=== PATIENT | female | born 1980 | race Caucasian/White ===

== ENCOUNTER 2024-03-13 07:14 | Outpatient (CLI) | payer OTHER, SELFPAY ==
--- NOTE | ~2024-03-13 | XR_ITS ---
XR cervical spine 4-5V 03/13/2024 07:47 Indication: Neck pain Procedure: 5 views cervical spine including flexion/extension views Comparison: No prior studies for comparison. Findings: Normal cervical alignment. Vertebral body heights are maintained. Odontoid process is marcus l. No prevertebral soft tissue abnormality. No alteration of alignment with flexion/extension. No acu te fracture or traumatic malalignment. Impression: 1: No significant abnormality of the cervical spine. Reviewed, dictated and finalized at location A. Impression: 1: No significant abnormality of the cervical spine.
== END 2024-03-13 07:15 | disposition home or self-care (01) ==
PROVIDERS: PCP Family Medicine; Visit Provider Family Medicine
DX: M54.2 Cervicalgia (principal); R20.2 Paresthesia of skin
CPT/HCPCS: 72050

== ENCOUNTER 2024-03-29 13:41 | Outpatient (CLI) | payer OTHER, SELFPAY ==
--- NOTE | ~2024-03-29 | MR_ITS ---
EXAMINATION: MR cervical spine wo con DATE: 03/29/2024 14:21 INDICATION: Neck pain. TECHNIQUE: Magnetic resonance imaging (MRI) of the cervical spine was performed without intravenous c ontrast. COMPARISON: Cervical spine radiographs 03/13/2021 FINDINGS: Bone alignment is normal. Vertebral body heights are normal. There is mildly decreased disc height at C5-C6. The spinal cord signal intensity is normal. The following disc levels are specifica lly discussed: C2-C3: There is a central protrusion. There is no uncovertebral joint osteoarthritis. There is mild b ilateral facet joint osteoarthritis. There is no neural foraminal stenosis. There is no central canal stenosis. C3-C4: There is a central protrusion. There is no uncovertebral joint osteoarthritis. There is mild r ight facet joint osteoarthritis. There is no neural foraminal stenosis. There is no central canal cydney nosis. C4-C5: There is a central extrusion. There is no uncovertebral joint osteoarthritis. There is moderat e bilateral facet joint osteoarthritis. There is no neural foraminal stenosis. There is mild central canal stenosis. C5-C6: The disc is bulging. There is moderate bilateral uncovertebral joint osteoarthritis. There is mild bilateral facet joint osteoarthritis. There is mild left neural foraminal stenosis. There is mil d central canal stenosis. C6-C7: The disc is bulging. There is mild right uncovertebral joint osteoarthritis. There is no facet joint osteoarthritis. There is mild right neural foraminal stenosis. There is mild central canal cydney nosis. C7-T1: The disc does not extend beyond the endplate margin. There is no uncovertebral joint osteoarth ritis. There is moderate left facet joint osteoarthritis. There is mild left neural foraminal stenosi s. There is no central canal stenosis. IMPRESSION: 1. Mild cervical spondylosis. Reviewed, dictated and finalized at location A.
== END 2024-03-29 13:42 | disposition home or self-care (01) ==
PROVIDERS: PCP Family Medicine; Visit Provider Family Medicine
DX: M47.892 Other spondylosis, cervical region (principal)
CPT/HCPCS: 72141

== ENCOUNTER 2024-12-23 09:30 | Outpatient (CLI) | payer OTHER, SELFPAY ==
--- NOTE | ~2024-12-23 | MR_ITS ---
EXAMINATION: MR lumbar spine wo con DATE: 12/23/2024 09:59 INDICATION: Lumbar spine pain TECHNIQUE: Magnetic resonance imaging (MRI) of the lumbar spine was performed without intravenous con trast. Sequences included sagittal T2-weighted FSE, sagittal T2-weighted FS FSE, sagittal T1-weighted FSE, and axial T2-weighted FSE. COMPARISON: None FINDINGS: Alignment is normal. Vertebral body heights are normal. Normal marrow signal. Moderate to severe dis c height loss at L5-S1, moderate disc height loss at L4-L5 and mild disc height loss at L3-L4. There are annular fissures at each of these levels. The conus medullaris terminates at L1-L2. There is norm al signal in the caudal spinal cord. Paravertebral soft tissues are unremarkable. The following disc levels are specifically discussed: T12-L1: The disc does not extend beyond the endplate margin. There is mild bilateral facet joint oste oarthritis. There is no neural foraminal stenosis. There is no central canal stenosis. L1-L2: Disc is minimally bulging. There is mild bilateral facet joint osteoarthritis. There is no herlinda ral foraminal stenosis. There is no central canal stenosis. L2-L3: The disc does not extend beyond the endplate margin. There is mild to moderate bilateral facet joint osteoarthritis. There is no neural foraminal stenosis. There is no central canal stenosis. L3-L4: Disc is bulging with annular fissure and superimposed left foraminal zone disc protrusion. The re is mild left and mild to moderate right facet joint osteoarthritis. There is mild bilateral neural foraminal stenosis. There is moderate central canal stenosis. L4-L5: Disc is bulging with annular fissure. There is mild left and moderate right facet joint osteoa rthritis. There is mild bilateral neural foraminal stenosis. There is mild central canal stenosis. L5-S1: Disc is bulging with annular fissure. There is mild bilateral facet joint osteoarthritis. Ther e is mild bilateral neural foraminal stenosis. There is mild central canal stenosis. IMPRESSION: 1. Moderate to severe lower lumbar spondylosis. Reviewed, dictated and finalized at location B. [employer]
== END 2024-12-23 09:31 | disposition home or self-care (01) ==
LOC: MICIMG 09:32
PROVIDERS: PCP Family Medicine; Visit Provider Nurse Practitioner Family
DX: M47.26 Other spondylosis with radiculopathy, lumbar region (principal)
CPT/HCPCS: 72148